=== PATIENT | male | born 1985 | race Two or more races ===

== ENCOUNTER 2023-09-04 19:13 | Emergency (ER) | payer OTHER, BC ==
[2023-09-04] MEDS: Acetaminophen 500 MG Tab PO ONE (19:39)
[2023-09-04] MEDS: Ibuprofen 600 MG Tab PO ONE (19:39)
[2023-09-04] MEDS: Lidocaine 1% 5 ML VIAL INJECT ONE (21:35)
[2023-09-04] MEDS: Cephalexin 500 MG Cap PO ONE (22:17)
[2023-09-04] MEDS: oxyCODONE 5 MG Tab PO ONE (22:17)
== END 2023-09-04 22:25 | disposition home or self-care (01) ==
LOC: MW.ED 19:13
DX: S68.122A Partial traumatic metacarpophalangeal amputation of right middle finger, initial encounter (principal); S68.124A Partial traumatic metacarpophalangeal amputation of right ring finger, initial encounter; I10 Essential (primary) hypertension; Z75.8 Other problems related to medical facilities and other health care; Z79.899 Other long term (current) drug therapy; W23.0XXA Caught, crushed, jammed, or pinched between moving objects, initial encounter; Y93.89 Activity, other specified
CPT/HCPCS: 12001; 73140; 99283; A9270; 99284; J3490